=== PATIENT | female | born 1980 | race Two or more races ===

== ENCOUNTER 2022-09-10 13:18 | Inpatient (IN) | payer OTHER ==
[2022-09-10 13:36] VITALS: BMI 26.6
[2022-09-10 15:40] LABS: BASO % 0.4 % (0-2.0); EOS % 0.5 % (0-4.5); HEMATOCRIT 36.9 % (32.4-45.2); HEMOGLOBIN 12.2 GM/dL (10.7-15.3); LYMPH % 12.9 % (8-40); MCH 27.1 pg (25.7-33.7); MCHC 33.2 g/dl (32.0-36.0); MEAN CELL VOLUME 81.7 fl (80-96); MEAN PLT VOLUME 9.7 fl (7.5-11.1); MONO % 3.9 % (3.8-10.2); NEUT % 82.3 % (42.8-82.8); PLATELET COUNT 255 10^3/uL (134-434); RBC 4.51 M/mm3 (3.60-5.2); RDW 13.7 % (11.6-15.6); WHITE BLOOD COUNT 13.1 K/mm3 (4.0-10.0)
[2022-09-10 15:58] LABS: POTASSIUM 4.1 mmol/L (3.5-5.1)
[2022-09-10 16:01] LABS: CALCIUM 9.2 mg/dL (8.5-10.1)
[2022-09-10 16:02] LABS: ALBUMIN 4.1 g/dl (3.4-5.0); BLOOD UREA NITROGEN 9.7 mg/dL (7-18)
[2022-09-10 16:05] LABS: CREATININE 0.5 mg/dL (0.55-1.3)
[2022-09-10 16:06] LABS: BILIRUBIN,TOTAL 0.4 mg/dL (0.2-1); TOT PROT 7.4 g/dl (6.4-8.2)
[2022-09-10] MEDS ORDERED: ASPIRIN 325 MG TABLET PO ONE (16:24)
[2022-09-10] MEDS ORDERED: ASPIRIN 81 MG CHEWABLE TABLETS ONE (17:04)
[2022-09-10] MEDS ORDERED: NITROGLYCERIN SUBLINGUAL 1/150 0.4 MG TAB SL PRN (17:52)
[2022-09-10 18:10] LABS: INR 0.93 (0.83-1.09); PROTHROMBIN TIME (PATIENT) 10.8 SEC (9.7-13.0)
[2022-09-10] MEDS ORDERED: ENOXAPARIN NA (PORCINE) 60 MG/0.6 ML DISP.SYRIN SQ ONE (19:05)
[2022-09-10] MEDS: ENOXAPARIN NA (PORCINE) 60 MG/0.6 ML DISP.SYRIN SQ SCH (19:21)
[2022-09-11] MEDS: ENOXAPARIN NA (PORCINE) 60 MG/0.6 ML DISP.SYRIN SQ SCH (05:58)
[2022-09-11 10:13] VITALS: RESP 20
[2022-09-11] MEDS: METOPROLOL TARTRATE 25 MG TABLET (FP) PO SCH ×2 (10:37→21:44)
[2022-09-11] MEDS ORDERED: CLOPIDOGREL BISULFATE 300 MG TABLET PO ONE (12:00)
[2022-09-11 12:11] LABS: CHLORIDE 107 mmol/L (98-107); POTASSIUM 4.2 mmol/L (3.5-5.1); SODIUM 138 mmol/L (136-145)
[2022-09-11 12:12] LABS: ANION GAP 5 MMOL/L (8-16); BLOOD UREA NITROGEN 10.9 mg/dL (7-18); CALCIUM 8.6 mg/dL (8.5-10.1); CO2 27 mmol/L (21-32); GLUCOSE,RANDOM 105 mg/dL (74-106)
[2022-09-11 12:16] LABS: CREATININE 0.6 mg/dL (0.55-1.3)
[2022-09-11] MEDS ORDERED: HEPARIN NA (PORCINE) 5,000 UNITS/ML 1ML VIAL IVPUSH ONE (14:05)
[2022-09-11] MEDS ORDERED: HEPARIN NA (PORCINE) 5,000 UNITS/ML 1ML VIAL IVPUSH PRN ×2 (14:05)
[2022-09-11] MEDS ORDERED: HEPARIN INFUSION - 25,000 UNITS/500 ML INFUS.BAG IVPB SCH (14:15)
[2022-09-11 18:10] LABS: HEMATOCRIT 38.3 % (32.4-45.2); HEMOGLOBIN 12.8 GM/dL (10.7-15.3); MCH 27.1 pg (25.7-33.7); MCHC 33.4 g/dl (32.0-36.0); MEAN CELL VOLUME 81.1 fl (80-96); MEAN PLT VOLUME 10.6 fl (7.5-11.1); PLATELET COUNT 257 10^3/uL (134-434); RBC 4.72 M/mm3 (3.60-5.2); RDW 13.8 % (11.6-15.6); WHITE BLOOD COUNT 7.6 K/mm3 (4.0-10.0)
[2022-09-11] MEDS ORDERED: METOPROLOL TARTRATE 5 MG/5 ML VIAL IVPUSH ONE (19:58)
[2022-09-11] MEDS ORDERED: METOPROLOL TARTRATE 50 MG TABLET (FP) PO ONE (19:58)
[2022-09-11 19:59] LABS: BASO % 0.4 % (0-2.0); EOS % 1.6 % (0-4.5); HEMATOCRIT 39.8 % (32.4-45.2); HEMOGLOBIN 13.3 GM/dL (10.7-15.3); LYMPH % 35.2 % (8-40); MCH 27.3 pg (25.7-33.7); MCHC 33.5 g/dl (32.0-36.0); MEAN CELL VOLUME 81.4 fl (80-96); MEAN PLT VOLUME 9.5 fl (7.5-11.1); MONO % 5.8 % (3.8-10.2); PLATELET COUNT 264 10^3/uL (134-434); RBC 4.89 M/mm3 (3.60-5.2); WHITE BLOOD COUNT 10.2 K/mm3 (4.0-10.0)
[2022-09-11 20:08] LABS: INR 1.03 (0.83-1.09); PROTHROMBIN TIME (PATIENT) 11.9 SEC (9.7-13.0)
[2022-09-11 20:11] LABS: ACTIVATED PTT 85.5 SECONDS (25.2-36.5)
[2022-09-11 20:17] LABS: POTASSIUM 3.7 mmol/L (3.5-5.1)
[2022-09-11 20:19] LABS: ALBUMIN 4.1 g/dl (3.4-5.0); BLOOD UREA NITROGEN 10.7 mg/dL (7-18); CALCIUM 9.2 mg/dL (8.5-10.1)
[2022-09-11 20:23] LABS: CREATININE 0.6 mg/dL (0.55-1.3)
[2022-09-11 20:24] LABS: TOT PROT 7.8 g/dl (6.4-8.2)
[2022-09-11 20:25] LABS: BILIRUBIN,TOTAL 0.5 mg/dL (0.2-1)
[2022-09-11 21:54] LABS: INR 1.04 (0.83-1.09); PROTHROMBIN TIME (PATIENT) 12.1 SEC (9.7-13.0)
[2022-09-11 21:57] LABS: ACTIVATED PTT 69.8 SECONDS (25.2-36.5)
[2022-09-11] MEDS ORDERED: ATORVASTATIN CA 80 MG TABLET (FP) PO SCH (22:00)
[2022-09-12 06:31] VITALS: BP 158/96; PULSE 68; TEMP 98.7
[2022-09-12] MEDS ORDERED: ASPIRIN COATED 81 MG TABLET.EC PO SCH (10:00)
== END 2022-09-12 07:00 | disposition short-term general hospital (02) | DRG 190 ==
LOC: JER 13:18 → JERBED 13:59 → INTOOBSV 17:42 → UNDOADMOB 17:42 → JERBED 17:42 → J4W 09-11 00:31 → JERBED 09-11 00:31 → J4W 09-11 00:31 → OBSVTOIN 09-11 13:59
PROVIDERS: ADMIT Internal Medicine; ATTEND Internal Medicine
DX: I21.4 Non-ST elevation (NSTEMI) myocardial infarction (principal); E78.5 Hyperlipidemia, unspecified; F41.9 Anxiety disorder, unspecified
CPT/HCPCS: 0241U-QW; 36415; 71045-TC-FY; 71046-TC-FY; 71275-TC; 80048; 80053; 80061; 82550; 82553; 83690; 84443; 84484; 84703; 85025; 85027; 85610; 85730; 93005; 93010; 93306-TC; 99285-25; G0378; J1644; Q9967